=== PATIENT | male | born 2000 | race Caucasian/White ===

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

== ENCOUNTER 2023-07-13 09:27 | Emergency (ER) | payer OTHER, SELFPAY ==
--- NOTE | ~2023-07-13 | XR_ITS ---
Left foot Technique: AP, oblique, and lateral views were obtained. Clinical History: Glass foreign body Findings: No acute fracture or dislocation is seen. Orthopedic hardware is present the region of the subtalar joint. Osseous alignment is anatomic. Joint spaces are preserved without erosive or degenera tive change. Soft tissues are unremarkable. Impression: No unexpected radiopaque foreign body seen. Orthopedic hardware at the region of the subtalar joint. Correlate with surgical history. Reviewed, dictated and finalized at location M. Impression: No unexpected radiopaque foreign body seen. Orthopedic hardware at the region of the subtalar joint. Correlate with surgica l history.
[2023-07-13 09:41] VITALS: BP 175/82; PULSE 72; RESP 18; TEMP 36.3; O2SAT 100
--- NOTE | 2023-07-13 09:54 | ED.LOWEXIN ---
HPI - Extremity Injury (Lower) General Chief Complaint: Extremity Injury, Lower Stated Complaint: i have glass in my foot Time Seen by Provider: 07/13/23 09:54 Source: patient Mode of arrival: ambulatory Limitations: no limitations History of Present Illness HPI Narrative: patient is a pleasant 22-year-old male with a past medical hx of asthma, ADD who presents emergency department today ambulatory with a steady gait for evaluation of concerns that he has glass in the bottom of his left foot and pain. He states this occurred last night when he broke a bowl/plate and it had been hurting which had him worried/anxious about having glass in his foot. denies any numbness/tingling to the LLE, drainage, fever, chills, or any other symptoms. Related Data Home Medications Medication Instructions Recorded Confirmed naproxen sodium 220 mg capsule 440 mg PO Q8H PRN Pain 04/02/20 04/23/20 (Aleve) Allergies Allergy/AdvReac Type Severity Reaction Status Date / Time CATS Allergy Intermediate WATERY Uncoded 07/13/23 09:44 EYES, WHEEZING Review of Systems Review of Systems: CONSTITUTIONAL: Denies fever, chills, or sweats. SKIN: possible glass to left foot. Denies rash or itching. MUSCULOSKELETAL: left foot pain. Denies back pain, or myalgia. NEUROLOGIC: Denies headache, numbness, or weakness. All systems reviewed & are unremarkable except as noted in HPI and below PMFSH Past Medical History Medical History ADD (attention deficit disorder) Asthma Depression Mild intermittent asthma without complication Family History Family History Mother Patient's mother is in good health Father Patient's father is in good health Sibling Patient's brother is in good health Social History Social History Smoking status: Never smoker Second hand tobacco smoke exposure: No Alcohol intake: never Exam Narrative: GENERAL: Well-appearing, well-nourished, and in no acute distress. HEAD: Normocephalic, atraumatic. CHEST: No respiratory distress. HEART: Regular rate and rhythm. 2+ left pedal pulse EXTREMITIES: Normal range of motion. No edema. there is very minor superficial puncture wound to the plantar aspect of left foot near the medial heal aspect. no bleeding/warmth/drainage. no foreign body noted. full ROM to left foot. no tenderness noted. SKIN: Warm, dry, no rash. cap refill <2 seconds. NEURO: No focal deficits. Alert and oriented x3. Distal NV intact to left foot. PSYCH: Normal mood Course Vital Signs Vital signs: Vital Signs Temperature 97.4 F L 07/13/23 09:41 Pulse Rate 72 07/13/23 09:41 Respiratory Rate 18 07/13/23 09:41 Blood Pressure 175/82 H 07/13/23 09:41 Pulse Oximetry 100 07/13/23 09:41 Oxygen Delivery Room Air 07/13/23 09:41 Temperature 97.4 F L 07/13/23 09:41 Pulse Rate 72 07/13/23 09:41 Respiratory Rate 18 07/13/23 09:41 Blood Pressure 175/82 H 07/13/23 09:41 Pulse Oximetry 100 07/13/23 09:41 Oxygen Delivery Room Air 07/13/23 09:41 MDM - Extremity Injury (Lower) MDM Narrative Medical decision making narrative: presents for left foot pain and concerns of glass. will obtain xray to look for foreign body, wound care, update tdap. xray negative for any foreign body. on physical exam extremely small puncture wound more superficial with no foreign body visualized after cleaning of the wound and palpating. Discussed care of the minor puncture wound with the patient. BP elevated. Patient is asymptomatic specifically no chest pain, shortness of breath, headache or vision changes.? All other vital signs are within normal limits. No indication for emergent workup at this time. Discussed risk of untreated blood pressure which includes heart attack, stroke, organ damage, permanent di
[2023-07-13] MEDS: TETANUS,DIPHTHERIA,AC PERTUSSIS ADULT (0.5 ML) BOOSTRIX IM (11:54)
[2023-07-13] MEDS: KETOROLAC 30 MG/ML VIAL (*BKC) IM (11:54)
== END 2023-07-13 12:42 | disposition home or self-care (01) ==
PROVIDERS: Emergency Provider Nurse Practitioner; PCP Family Medicine
DX: S91.332A Puncture wound without foreign body, left foot, initial encounter (principal); R03.0 Elevated blood-pressure reading, without diagnosis of hypertension; Z23 Encounter for immunization; J45.20 Mild intermittent asthma, uncomplicated; W25.XXXA Contact with sharp glass, initial encounter
CPT/HCPCS: 73630; 90471; 90715; 96372; 99283; J1885